=== PATIENT | female | born 1985 | race Caucasian/White ===

== ENCOUNTER 2016-03-30 10:36 | Emergency (ER) | payer BC ==
[2016-03-30] MEDS ORDERED: Ketorolac INJ* 30 MG/ML 1 ML VIAL IV PUSH ONE (11:19)
[2016-03-30] MEDS ORDERED: NS 0.9% 1000 ML* 1,000 ML BOLUS SCH (11:30)
--- NOTE | 2016-03-30 11:33 | ED ---
Throat Pain/Nasal Congestion - History of Current Complaint Chief Complaint: EDThroatPain Hx Obtained From: Patient Onset/Duration: Gradual Onset - partner was rececntly treated for Strep throat ( resolved). Pt has had ST for 2 weekshas had 2 neg strep tests at PCP office, no treatment other than cough drops and OTC NSAIDS. over past 2-3 days she has had in creasing sinus pain/pressure and ear pain. ST has become so bad she cannot eat or drink. now feeling dehyfrated and tired. Associated Signs And Symptoms: Positive: Sinus Discomfort. Negative: Drooling, Wheezing, Hoarseness, Nasal Discharge Cough: Nonproductive - Allergies/Home Medications Allergies/Adverse Reactions: Allergies Allergy/AdvReac Type Severity Reaction Status Date / Time No Known Allergies Allergy Verified 03/30/16 10:51 PMH/Surg Hx/FS Hx/Imm Hx Previously Healthy: Yes Endocrine/Hematology History: Denies: Hx Diabetes, Hx Thyroid Disease Cardiovascular History: Denies: Other Cardiovascular Problems/Disorders Respiratory History: Denies: Other Respiratory Problems/Disorders EENT History: Denies: Hx Tonsillitis Neurological History: Denies: Hx Migraine Psychiatric History: Denies: Other Psychiatric Issues/Disorders Infectious Disease History: No Infectious Disease History: Denies: Traveled Outside the [place] in Last 30 Days - Family History Known Family History: Positive: None - Social History Occupation: Employed Full-time Lives: With Family Alcohol Use: None Substance Use Type: Reports: None Smoking Status (MU): Never Smoked Tobacco Review of Systems Positive: Fever, Fatigue. Negative: Chills Eyes: Negative Negative: Photophobia, Drainage Positive: Sore Throat, Ear Ache Cardiovascular: Negative Positive: Cough. Negative: Shortness Of Breath Gastrointestinal: Negative Skin: Negative Negative: Rash Neurological: Negative Psychological: Other - tearful when describing pain All Other Systems Reviewed And Are Negative: Yes Physical Exam Triage Information Reviewed: Yes Vital Signs On Initial Exam: Initial Vitals Temp Pulse Resp BP Pulse Ox 98.2 F 114 15 134/80 99 03/30/16 10:40 03/30/16 10:40 03/30/16 10:40 03/30/16 10:40 03/30/16 10:40 Vital Signs Reviewed: Yes Appearance: Positive: No Pain Distress, Obese Skin: Positive: Warm, Skin Color Reflects Adequate Perfusion, Dry Eyes: Positive: Normal ENT: Positive: Pharyngeal erythema, Nasal congestion, TM dull - R ear bulging but not red, Other - cobblestoning OP Neck: Positive: Supple, Nontender, No Lymphadenopathy Respiratory/Lung Sounds: Positive: Clear to Auscultation Cardiovascular: Positive: Normal, RRR, Pulses are Symmetrical in both Upper and Lower Extremities Abdomen Description: Positive: Nontender, No Organomegaly, Soft Neurological: Positive: Normal, Sensory/Motor Intact, Alert, Oriented to Person Place, Time Psychiatric: Positive: Normal Diagnostics - Vital Signs Vital Signs Temp Pulse Resp BP Pulse Ox 03/30/16 10:40 98.2 F 114 15 134/80 99 - Laboratory Result Diagrams: 03/30/16 11:30 03/30/16 11:30 Lab Statement: Any lab studies that have been ordered have been reviewed, and results considered in the medical decision making process. Re-Evaluation - Re-Evaluation First Eval Change: Improved - pt states throat pain has decreased and she is feeling some better. has not tried to swallow fluids or food yet, but is willing to try now. Second Eval Re-Evaluation Time: 14:00 - able to swallow without intense pain. states feels better, no new c/o Change: Improved EENT Course/Dx - Differential Diagnoses Differential Diagnoses: Otitis Media, Pharyngitis, Sinusitis, URI/Bronchitis, Other - mono - Diagnoses Provider Diagnoses: Sinusitis, acute, Pharyngitis Discharge - Discharge Plan Condition: Improved Disposition: HOME Patient Education Materials: Sinusitis (ED) Forms: *Work Release Referrals: Kathryn Blanco, KETTLE FIRER [Primary Care Provider] - 2 Days (if no better) Additional Instructions: use augmentin as prescribed drink plenty of fluids use ibuprofen 600-800mg every 6 hours as needed for pain/ may also use Tylenol as directed
[2016-03-30 11:39] LABS: EBV Response YES
[2016-03-30 11:44] LABS: Hematocrit 38 % (35-47); Hemoglobin 12.6 g/dl (12.0-16.0); Mean Corpuscular HGB Conc 33 g/dl (31-36); Mean Corpuscular Hemoglobin 27 pg (27-31); Mean Corpuscular Volume 80 fL (80-97); Mean Platelet Volume 8 um3 (7.4-10.4); Red Blood Count 4.74 10^6/ul (4.0-5.4); Red Cell Distribution Width 14 % (10.5-15); White Blood Count 8.5 10^3/ul (3.5-10.8)
[2016-03-30 11:57] LABS: Albumin 3.7 g/dL (3.2-5.2); BUN/Creatinine Ratio 9.9 (8-20); Calcium 8.7 mg/dL (8.6-10.3); EGFR African American 122.7 (>60); EGFR Non-African American 95.4 (>60); Potassium 3.5 mmol/L (3.5-5.0); Total Bilirubin 0.4 mg/dL (0.2-1.0); Total Protein 6.7 g/dL (6.4-8.9)
[2016-03-30 12:34] LABS: Mono Internal Control QC Line Present
[2016-03-30 14:27] VITALS: BP 116/78
[2016-04-01 14:16] LABS: EBV Capsid Ag IgG Ab Positive (Negative); EBV Capsid Ag IgM Ab Negative (Negative)
== END 2016-03-30 14:26 | disposition home or self-care (01) ==
LOC: ED 10:36
DX: J01.90 Acute sinusitis, unspecified (principal); J02.9 Acute pharyngitis, unspecified
CPT/HCPCS: 36415; 80053; 85025; 86308; 86664; 86665; 96361; 96374; J1885

== ENCOUNTER 2017-07-03 09:35 | Emergency (ER) | payer BC ==
--- OUTSIDE RECORDS SUMMARY | 2017-07-03 10:25 | XMS REPORT ---
:1985 External Reference #:[id number] Author Organization [facility] Address [address] [address] Phone [phone] Care Team Providers Name Role Phone Kathie Rowland N.P. Primary Care Physician Unavailable Payers Type Date Identification Numbers Payment Provider Subscriber Health Maintenance Policy Number: [facility] Manisha Gupta [facility] [id number] PayID: [id number] [address] [address] AddyYUE garcia [address] Medigap Part B Expires: 03/22/2017 Policy Number: [employer] Manisha Gupta [id number] PayID: [id number] [address] [address] [place] [address] Problems Date Description Provider Status Onset: 06/08/2017 Peroneal tendinitis Krishna Barrera MD Active Onset: 06/08/2017 Sprain of ankle Krishna Barrera MD Active Social History Description No Information Available Allergies, Adverse Reactions, Alerts Date Description Reaction Status Severity Comments 06/08/2017 Latex active 06/08/2017 Tape active Medications Medication Date Status Form Strength Qnty SIG Indications Ordering Provider Gabapentin Active Capsules 100mg 60caps take 1 to Lissette 016 2 capsules MD Elio by mouth one time daily in the evening - maximum daily dose of 2 per day Ferrous Active Tablets 325(65Fe) 60tabs 1 tab by Lissette Sulfate 015 mg mouth MD Elio twice a day Prozac Active Unknown 000 Naproxen Active Unknown 000 Vital Signs Date Vital Result Comment 06/08/2017 Height 62 inches 5'2" Weight 240.00 lb BP Systolic 142 mmHg BP Diastolic 78 mmHg Respiratory Rate 16 /min Body Temperature 97.4 F Pain Level 4 BMI (Body Mass Index) 43.9 kg/m2 Results Test Date Test Result H/L Range Note Laboratory test finding 01/25/2015 Ferritin < 10.0 ng/mL Low 11-307 Iron & Iron Binding Capacity 01/25/2015 Iron 22 g/dL Low 50-212 Unsaturated Iron Binding 479 g/dL Total Iron Binding Capacity 501 g/dL High 250-450 % Iron Saturation 4 % Low 15-55 CBC Auto Diff 01/25/2015 White Blood Count 7.4 10^3/uL 4.8-10.8 Red Blood Count 4.38 10^6/uL 4.0-5.4 Hemoglobin 10.8 g/dL Low 12.0-16.0 Hematocrit 34 % Low 35-47 Mean Corpuscular Volume 77 fL Low 80-97 Mean Corpuscular Hemoglobin 25 pg Low 27-31 Mean Corpuscular HGB Conc 32 g/dL 31-36 Red Cell Distribution Width 14 % 10.5-15 Platelet Count 371 10^3/uL 150-450 Mean Platelet Volume 8 um3 7.4-10.4 Abs Neutrophils 4.8 10^3/uL 1.5-7.7 Abs Lymphocytes 2.0 10^3/uL 1.0-4.8 Abs Monocytes 0.5 10^3/uL 0-0.8 Abs Eosinophils 0.1 10^3/uL 0-0.6 Abs Basophils 0 10^3/uL 0-0.2 Abs Nucleated RBC 0.01 10^3/uL Granulocyte % 64.9 % 38-83 Lymphocyte % 27.5 % 25-47 Monocyte % 6.3 % 1-9 Eosinophil % 0.9 % 0-6 Basophil % 0.4 % 0-2 Nucleated Red Blood Cells % 0.1 Procedures Date CPT Code Description Status 03/20/2014 82517 Polysomnography Sleep Staging 4+ Parameters Completed Encounters Type Date Location Provider CPT E/M Dx Office Visit 06/08/2017 [place] [address] [id number] 8:00a [facility] M76.71 Plan of Care Future Appointment(s):07/20/2017 8:00 am - Krish[facility] MD [facility]06/08/2017 - Krishna Barrera, [id number] Sprain of other ligament of right ankle, initial encounterNew Therapy:Physical TherapyFollow up: Follow Up: 6 jkwbrL17.71 Peroneal tendinitis, right leg
[2017-07-03] MEDS ORDERED: Ketorolac INJ* 30 MG/ML 1 ML VIAL IV PUSH ONE (13:50)
[2017-07-03] MEDS ORDERED: Ondansetron INJ* 2 MG/ML VIAL IV ONE (13:52)
[2017-07-03] MEDS ORDERED: NS 0.9% 1000 ML* 1,000 ML IV ONE (14:58)
--- NOTE | 2017-07-03 15:28 | RAD ---
Indication: Blurry vision. CT of the brain was performed without IV contrast. Ventricular structures are midline. No midline shift is noted. The extra-axial spaces are unremarkable. I see no evidence of intracranial mass or hemorrhage. No other high or low density lesions are identified. Mastoid air cells and paranasal sinuses are otherwise unremarkable. IMPRESSION: No intracranial mass or hemorrhage is noted.
--- NOTE | 2017-07-03 17:34 | ED ---
Terra Angelo Thomas, scribed for Vin Gardiner MD on 07/03/17 at 1202 . Headache - HPI Summary HPI Summary: The patient is a 32 year old female with a history of migraines complaining of a headache that began this morning. She headache is frontal. She describes the pain as pressure. The pain is rated 8/10. She treated the pain with Naproxen 500 mg and acetaminophen 1000 mg this morning at around 08:00, which did not relieve pain. She did have some nausea earlier today. She denies cold symptoms. She denies focal weakness and speech problems. Pt also c/o blurry vision at the height of her PONCE sx, denies n/v - History Of Current Complaint Chief Complaint: EDHeadache Stated Complaint: MIGRAINE Time Seen by Provider: 07/03/17 11:47 Hx Obtained From: Patient Hx Last Menstrual Period: IUD Onset/Duration: Started hours ago - onset today at 06:00, Still Present Currently Pain Is: Current Pain Scale(0-10)= - 8 Timing: Constant Character: Pressure Location of Headache: Frontal Allevating Factors: Nothing - naproxen and acetamionphen did not releive pain Associated Signs And Symptoms: Negative - fever, cold symptoms, focal weakness, speech problems, Nausea - Allergies/Home Medications Allergies/Adverse Reactions: Allergies Allergy/AdvReac Type Severity Reaction Status Date / Time latex Allergy Rash And Verified 07/03/17 09:51 Itching Home Medications: Home Medications Fluoxetine HCl [Fluoxetine HCl] 40 mg PO BEDTIME 07/03/17 [History Confirmed ] Gabapentin CAP(*) [Neurontin 100 mg CAP(*)] 100 mg PO BEDTIME 07/03/17 [History Confirmed 07/03/17] PMH/Surg Hx/FS Hx/Imm Hx Endocrine/Hematology History: Denies: Hx Diabetes, Hx Thyroid Disease Cardiovascular History: Denies: Other Cardiovascular Problems/Disorders Respiratory History: Denies: Other Respiratory Problems/Disorders Neurological History: Reports: Hx Migraine Psychiatric History: Denies: Other Psychiatric Issues/Disorders Infectious Disease History: No Infectious Disease History: Denies: Traveled Outside the US in Last 30 Days - Family History Known Family History: Positive: Other - Per EMR, patient does not have relevant FHx - Social History Alcohol Use: None Substance Use Type: Reports: None Smoking Status (MU): Never Smoked Tobacco Review of Systems Negative: Fever Respiratory: Negative - cold symptoms Positive: Nausea Neurological: Negative - speech problems Positive: Headache. Negative: Weakness - focal All Other Systems Reviewed And Are Negative: Yes Physical Exam - Summary Physical Exam Summary: Appearance: Well-appearing, Well-nourished Skin: Warm Eyes: PERRL ENT: Normal Neck: Supple, nontender Respiratory: Clear to auscultation Cardiovascular: Regular rate, regular rhythm. Abdomen: Soft, nontender Musculoskeletal: Normal, Strength/ROM Intact Neurological: Normal, A&Ox3 Psychiatric: Normal General: No acute distress Triage Information Reviewed: Yes Vital Signs On Initial Exam: Initial Vitals Temp Pulse Resp BP Pulse Ox 97.4 F 102 12 146/95 95 07/03/17 09:53 07/03/17 09:53 07/03/17 09:53 07/03/17 09:53 07/03/17 09:53 Vital Signs Reviewed: Yes Diagnostics - Vital Signs Vital Signs Temp Pulse Resp BP Pulse Ox 07/03/17 11:32 98.1 F 73 14 136/74 07/03/17 09:53 97.4 F 102 12 146/95 95 - Laboratory Lab Statement: Any lab studies that have been ordered have been reviewed, and results considered in the medical decision making process. - Radiology CT Brain Xray Interpretation: No Acute Changes - IMPRESSION: No intracranial mass or hemorrhage is noted. Dr. Gardiner has reviewed this report. Radiology Interpretation Completed By: Radiologist Headache Course/Dx - Course Course Of Treatment: PONCE improved with IV toradol and Zofran, CT head negative - Diagnoses Provider Diagnoses: Migraine headache Discharge - Sign-Out/Discharge Documenting (check all that apply): Discharge - Discharge Plan Condition: Stable Disposition: HOME Patient Education Materials: Migraine Headache (ED) Referrals: Halle Rowland NP [Primary Care Provider] - - Billing Disposition and Condition Condition: STABLE Disposition: HOME The documentation as recorded by the Terra phillips Thomas accurately reflects the service I personally performed and the decisions made by , Vin Gardiner MD.
[2017-07-03 18:22] VITALS: BP 138/66
== END 2017-07-03 18:21 | disposition home or self-care (01) ==
LOC: ED 09:35
DX: G43.909 Migraine, unspecified, not intractable, without status migrainosus (principal)
CPT/HCPCS: 70450; 96360; 96374; 96375; 99283; J1885; J2405

== ENCOUNTER 2018-01-23 20:04 | Emergency (ER) | payer BC ==
--- OUTSIDE RECORDS SUMMARY | 2018-01-23 20:24 | XMS REPORT ---
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 Active Onset: 12/08/2017 Arthralgia of the pelvic region and Earle Henriquez M.D. Active thigh Onset: 12/08/2017 Restless legs Earle Henriquez M.D. Active Onset: 12/08/2017 Insomnia Earle Henriquez M.D. Active Onset: 12/08/2017 Migraine without aura, not refractory Earle Henriquez M.D. Active Onset: 12/08/2017 Irritable bowel syndrome with Earle Henriquez M.D. Active diarrhea Onset: 12/08/2017 Anemia Earle Henriquez M.D. Active Onset: 12/08/2017 Anxiety state Earle Henriquez M.D. Active Onset: 12/08/2017 Mild recurrent major depression Earle Henriquez M.D. Active Onset: 06/08/2017 Peroneal tendinitis Krishna Barrera MD Active Onset: 06/08/2017 Sprain of ankle Krishna Barrera MD Active Family History Date Family Member(s) Problem(s) Comments General Breast Cancer General Diabetes Mother Breast Cancer Mother Hypertension Social History Type Date Description Comments Lives With Children Occupation [employer] ETOH Use Denies alcohol use ETOH Use Rarely consumes alcohol Smoking Patient has never smoked Recreational Drug Use Denies Drug Use Allergies, Adverse Reactions, Alerts Date Description Reaction Status Severity Comments 06/08/2017 Latex active 06/08/2017 Tape active 12/08/2017 Dairy Ease active 12/08/2017 Gluten active Medications Medication Date Status Form Strength Qnty SIG Indications Ordering Provider Prozac Active Capsules 40mg 30caps 1 By Mouth Earle 018 In The [place], Evening MSaúlDSaúl Beyaz Active Tablets 3-0.02-0.45 Earle 018 1mg Deepak Henriquez Gabapentin Active Capsules 100mg 60caps 2 capsules Lissette 016 by mouth MD Elio one time daily in the evening - maximum daily dose of 2 per day Ibuprofen 0 Active Tablets 800mg 1 tablet Unknown 000 q8 hours as needed for pain Ferrous Hx Tablets 325(65Fe) 60tabs ( Not Lissette Sulfate 015 - mg Taking) 1 MD Elio tab by 018 mouth twice a day Prozac 0 Hx Capsule 30caps 1 By Mouth Earle 000 - In The [place], Evening M.D. 018 Naproxen Hx Unknown 000 - 018 Vital Signs Date Vital Result Comment 12/31/2017 Height 61 inches 5'1" Heart Rate 76 /min BP Systolic 128 mmHg BP Diastolic 80 mmHg Body Temperature 98.4 F Pain Level 7 12/08/2017 Height 62 inches 5'2" Weight 216.00 lb Heart Rate 76 /min BP Systolic 120 mmHg BP Diastolic 76 mmHg Body Temperature 99.2 F O2 % BldC Oximetry 98 % BMI (Body Mass Index) 39.5 kg/m2 06/08/2017 Height 62 inches 5'2" Weight 240.00 lb BP Systolic 142 mmHg BP Diastolic 78 mmHg Respiratory Rate 16 /min Body Temperature 97.4 F Pain Level 4 BMI (Body Mass Index) 43.9 kg/m2 Results Test Date Test Result H/L Range Note CBC Auto Diff 12/18/2017 White Blood Count 6.7 10^3/uL 3.5-10.8 Red Blood Count 4.72 10^6/uL 4.00-5.40 Hemoglobin 12.8 g/dL 12.0-16.0 Hematocrit 38 % 35-47 Mean Corpuscular Volume 81 fL 80-97 Mean Corpuscular Hemoglobin 27 pg 27-31 Mean Corpuscular HGB Conc 33 g/dL 31-36 Red Cell Distribution Width 14 % 10.5-15 Platelet Count 366 10^3/uL 150-450 Mean Platelet Volume 8.0 um3 7.4-10.4 Abs Neutrophils 4.5 10^3/uL 1.5-7.7 Abs Lymphocytes 1.7 10^3/uL 1.0-4.8 Abs Monocytes 0.4 10^3/uL 0-0.8 Abs Eosinophils 0.1 10^3/uL 0-0.6 Abs Basophils 0 10^3/uL 0-0.2 Abs Nucleated RBC 0 10^3/uL Granulocyte % 67.1 % 38-83 Lymphocyte % 25.9 % 25-47 Monocyte % 5.8 % 0-7 Eosinophil % 0.9 % 0-6 Basophil % 0.3 % 0-2 Nucleated Red Blood Cells % 0.2 Basic Metabolic Panel 12/18/2017 Sodium 138 mmol/L 135-145 Potassium 4.5 mmol/L 3.5-5.0 Chloride 105 mmol/L 101-111 Co2 Carbon Dioxide 25 mmol/L 22-32 Anion Gap 8 mmol/L 2-11 Glucose 96 mg/dL 70-100 Blood Urea Nitrogen 9 mg/dL 6-24 Creatinine 0.72 mg/dL 0.51-0.95 BUN/Creatinine Ratio 12.5 8-20 Calcium 9.0 mg/dL 8.6-10.3 Egfr Non- 93.3 >60 Egfr 112.9 >60 1 Lipid Profile (Trig/Chol/HDL) 12/18/2017 Triglycerides 148 mg/dL 2 Cholesterol 195 mg/dL 3 HDL Cholesterol 75.4 mg/dL 4 LDL Cholesterol 90 mg/dL 5 Laboratory test finding 01/25/2015 Ferritin < 10.0 [...] 0-2 Nucleated Red Blood Cells % 0.1 1 Because ethnic data is not always readily available, this report includes an eGFR for both -Americans and non- Americans. The National Kidney Disease Education Program (NKDEP) does not endorse the use of the MDRD equation for patients that are not between the ages of 18 and 70, are , have extremes of body size, muscle mass, or nutritional status, or are non- or non-. According to the National Kidney Foundation, irrespective of diagnosis, the stage of the disease is based on the level of kidney function: Stage Description GFR(mL/min/1.73 m(2)) 1 Kidney damage with normal or decreased GFR 90 2 Kidney damage with mild decrease in GFR 60-89 3 Moderate decrease in GFR 30-59 4 Severe decrease in GFR 15-29 5 Kidney failure <15 (or dialysis) 2 Desirable: <150 Borderline High: 150-199 High: 200-499 Very High: >500 3 Desirable: <200 Borderline High: 200-239 High: >239 4 Low: <40 Desirable: 40-60 High: >60 5 Desirable: <100 Near Optimal: 100-129 Borderline High: 130-159 High: 160-189 Very High: >189 Procedures Date CPT Code Description Status 03/20/2014 38625 Polysomnography Sleep Staging 4+ Parameters Completed Encounters Type Date Location Provider CPT E/M Dx Office Visit 12/08/2017 4:20p [facility] Earle Henriquez, [address] F33.0 - [address] F41.9 D64.9 K58.0 G43.009 G47.00 G25.81 Z13.220 Z13.1 M25.551 E66.9 Office Visit 06/08/2017 8:00a [place] [address] S93.491A Of [facility] M76.71 Plan of Care Future Appointment(s):06/07/2018 4:00 pm - Earle Henriquez M.D. at [facility] - [address]/31/2017 - Daina Lopez, MDM25.551 Pain in right hipM24.851 Oth specific joint derangements of right hip, NECNew Xrays:MRI Hip Right ArthrogramNew Therapy:Physical TherapyFollow up:Follow up: after MR arthrogram
[2018-01-23 20:33] VITALS: BP 148/101
--- NOTE | 2018-01-23 21:20 | UC ---
Throat Pain/Nasal Christophe HPI - HPI Summary HPI Summary: uri for 7 days today sore throat with right ear pain no fevers no illness exposures - History of Current Complaint Chief Complaint: UCEar Stated Complaint: SORE THROAT,EAR PAIN Time Seen by Provider: 01/23/18 21:11 Hx Obtained From: Patient Hx Last Menstrual Period: control ?: No Onset/Duration: Gradual Onset, Lasting Days - 7, Worse Since - today Pain Intensity: 7 Pain Scale Used: 0-10 Numeric Cough: None Associated Signs & Symptoms: Positive: Nasal Discharge - Allergies/Home Medications Allergies/Adverse Reactions: Allergies Allergy/AdvReac Type Severity Reaction Status Date / Time latex Allergy Rash And Verified 01/06/18 11:15 Itching PMH/Surg Hx/FS Hx/Imm Hx Previously Healthy: No Psychological History: Depression - Surgical History Surgical History: None Surgery Procedure, Year, and Place: DENIES - Family History Known Family History: Positive: None, Other - Per EMR, patient does not have relevant FHx - Social History Occupation: Employed Full-time Lives: With Family Alcohol Use: None Substance Use Type: None Smoking Status (MU): Never Smoked Tobacco Review of Systems Constitutional: Negative Skin: Negative Eyes: Negative ENT: Sore Throat, Ear Ache, Nasal Discharge, Sinus Congestion Respiratory: Negative Cardiovascular: Negative Gastrointestinal: Negative Genitourinary: Negative Motor: Negative Neurovascular: Negative Musculoskeletal: Negative Neurological: Negative Psychological: Negative Is Patient Immunocompromised?: No All Other Systems Reviewed And Are Negative: Yes Physical Exam Triage Information Reviewed: Yes Appearance: Well-Appearing, No Pain Distress, Well-Nourished Vital Signs: Initial Vital Signs Temp 98.5 F 01/23/18 20:28 Pulse 82 01/23/18 20:28 Resp 16 01/23/18 20:28 BP 148/101 01/23/18 20:28 Pulse Ox 100 01/23/18 20:28 Vital Signs Reviewed: Yes Eye Exam: Normal Eyes: Positive: Conjunctiva Clear ENT Exam: Normal ENT: Positive: Normal ENT inspection, Hearing grossly normal, Pharynx normal, Nasal congestion, Nasal drainage, TMs normal, Uvula midline, Other - right eustation area discomfort. Negative: Tonsillar swelling, Tonsillar exudate, Trismus, Muffled voice, Hoarse voice, Dental tenderness, Sinus tenderness Dental Exam: Normal Neck exam: Normal Neck: Positive: Supple, Nontender, No Lymphadenopathy Respiratory Exam: Normal Respiratory: Positive: Chest non-tender, Lungs clear, Normal breath sounds, No respiratory distress, No accessory muscle use Cardiovascular Exam: Normal Cardiovascular: Positive: RRR, No Murmur, Pulses Normal, Brisk Capillary Refill Musculoskeletal Exam: Normal Musculoskeletal: Positive: Strength Intact, ROM Intact, No Edema Neurological Exam: Normal Neurological: Positive: Alert, Muscle Tone Normal Psychological Exam: Normal Skin Exam: Normal Diagnostics - Laboratory Diagnostic Studies Completed/Ordered: rst (-) Throat Pain/Nasal Course/Dx - Course Assessment/Plan: increase fluids, flonase, sudafed, tylenol, ibuprofen follow blood pressure with pcp - Differential Dx/Diagnosis Provider Diagnoses: right eustation tube dysfunction Discharge - Sign-Out/Discharge Documenting (check all that apply): Patient Departure All imaging exams completed and their final reports reviewed: No Studies - Discharge Plan Condition: Stable Disposition: HOME Prescriptions: Fluticasone NASAL SPRAY 50MCG* [Flonase NASAL SPRAY 50MCG*] 2 spray BOTH NARES DAILY #1 btl Patient Education Materials: Earache (ED), Hypertension (ED) Referrals: Earle Henriquez MD [Primary Care Provider] - 2 Weeks - Billing Disposition and Condition Condition: STABLE Disposition: Home
== END 2018-01-23 21:37 | disposition home or self-care (01) ==
LOC: UCEAST 20:04
DX: H69.91 Unspecified Eustachian tube disorder, right ear (principal); Z91.040 Latex allergy status
CPT/HCPCS: 87651; 99212; G0463

== ENCOUNTER 2018-06-21 08:15 | Emergency (ER) | payer BC, OTHER ==
[2018-06-21] MEDS ORDERED: Ketorolac INJ* 30 MG/ML 1 ML VIAL IV ONE (08:34)
[2018-06-21] MEDS ORDERED: Ondansetron INJ* 2 MG/ML VIAL IV ONE (08:34)
[2018-06-21] MEDS ORDERED: NS 0.9% 1000 ML** 1,000 ML IV ONE (08:34)
[2018-06-21] MEDS ORDERED: diPHENhydraMINE IV* 50 MG/ML 1 ml VIAL (BENADRYL) IV ONE (08:34)
--- OUTSIDE RECORDS SUMMARY | 2018-06-21 08:43 | XMS REPORT | Continuity of Care Document ---
:1985 External Reference #:[id number] Author Name ChrisRuth Care Team Providers Name Role Phone Earle Henriquez MD Care Team Information Medical Records Assistant Unavailable Earle Henriquez MD Primary Care Physician Unavailable Payers Date Identification Numbers Payment Provider Subscriber Policy Number: [id number] [employer] Manisha Gupta PayID: [id number] [address] [address] [place] [address] Effective: 2016 Policy Number: [id number] [facility] Manisha Gupta Expires: 2018 Group Number: [id number] PayID: [id number] [address] Advance Directives Description No Information Available Problems Date Description Provider Status Onset: 12/08/2017 [...] MD Active Family History Date Family Member(s) Observation Comments General Breast Cancer General Diabetes Mother Breast Cancer Mother Hypertension Social History Type Date Description Comments Sex Unknown Lives With Children 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 ETOH Use Denies alcohol use ETOH Use Rarely consumes alcohol Tobacco Use Start: Unknown Patient has never smoked Recreational Drug Use Denies Drug Use Smoking Status Reviewed: 05/24/18 Patient has never smoked Allergies, Adverse Reactions, Alerts Date Description Reaction Status Severity Comments 06/08/2017 Latex Active 06/08/2017 Tape Active 12/08/2017 Dairy Ease Active 12/08/2017 Gluten Active Medications Medication Date Status Form Strength Qnty SIG Indications Ordering Provider Prozac 12/08/ Active Capsules 40mg 30caps 1 By Mouth Earle 2017 In The [place], Evening M.DSaúl Beyaz 12/08/ Active Tablets 3-0.02-0.4 Earle 2017 51mg Deepak Henriquez Gabapentin 06/11/ Active Capsules 100mg 60caps 2 capsules Earle 2015 by mouth [place], one time M.D. daily in the evening - maximum daily dose of 2 per day Ibuprofen / Active Tablets 800mg 1 tablet Unknown 0000 q8 hours as needed for pain Azithromycin 01/25/ Hx Tablets 250mg 6tabs 2 tab J06.9 Earle 2017 - today and [place], 05/23/ then 1tab M.D. 2019 daily Ferrous Sulfate 01/26/ Hx Tablets 325(65Fe) 60tabs ( Not Lissette 2015 - mg Taking) 1 MD Elio 12/30/ tab by 2017 mouth twice a day Prozac / Hx Capsule 30caps 1 By Mouth Earle 0000 - In The [place], 12/08/ Evening M.D. 2018 Naproxen / Hx Unknown 0000 - 2017 Immunizations Description No Information Available Vital Signs Date Vital Result Comment 05/24/2018 5:01pm Height 61 inches 5'1" Weight 255.50 lb Heart Rate 94 /min BP Systolic 125 mmHg BP Diastolic 79 mmHg Body Temperature 95.9 F O2 % BldC Oximetry 97 % BMI (Body Mass Index) 48.3 kg/m2 01/25/2018 12:00pm Height 61 inches 5'1" Weight 255.31 lb Heart Rate 95 /min BP Systolic 110 mmHg BP Diastolic 80 mmHg Body Temperature 98.6 F O2 % BldC Oximetry 97 % BMI (Body Mass Index) 48.2 kg/m2 12/31/2017 3:39pm Height 61 inches 5'1" Heart Rate 76 /min BP Systolic 128 mmHg BP Diastolic 80 mmHg Body Temperature 98.4 F Pain Level 7 12/08/2017 4:28pm Height 62 inches 5'2" Weight 216.00 lb Heart Rate 76 /min BP Systolic 120 mmHg BP Diastolic 76 mmHg Body Temperature 99.2 F O2 % BldC Oximetry 98 % BMI (Body Mass Index) 39.5 kg/m2 06/08/2017 8:26am Height 62 inches 5'2" Weight 240.00 lb BP Systolic 142 mmHg BP Diastolic 78 mmHg Respiratory Rate 16 /min Body Temperature 97.4 F Pain Level 4 BMI (Body Mass Index) 43.9 kg/m2 Results Test Date Facility Test Result H/L Range Note Laboratory test 01/23/2018 [facility] Rapid Strep Negative Negative [address] [place] [address] [phone] CBC Auto Diff 12/18/2017 [facility] White Blood 6.7 10^3/uL N 3.5-10.[address] [place] [address] [phone] Red Blood Count 4.72 10^6/uL N 4.00-5.40 Hemoglobin 12.8 g/dL N 12.0-16.0 Hematocrit 38 % N 35-47 Mean Corpuscular Volume 81 fL N 80-97 Mean Corpuscular Hemoglobin 27 pg N 27-31 Mean Corpuscular HGB Conc 33 g/dL N 31-36 Red Cell Distribution Width 14 % N 10.5-15 Platelet Count 366 10^3/uL N 150-450 Mean Platelet Volume 8.0 um3 N 7.4-10.4 Abs Neutrophils 4.5 10^3/uL N 1.5-7.7 Abs Lymphocytes 1.7 10^3/uL N 1.0-4.8 Abs Monocytes 0.4 10^3/uL N 0-0.8 Abs Eosinophils 0.1 10^3/uL N 0-0.6 Abs Basophils 0 10^3/uL N 0-0.2 Abs Nucleated RBC 0 10^3/uL Granulocyte % 67.1 % N 38-83 Lymphocyte % 25.9 % N 25-47 Monocyte % 5.8 % N 0-7 Eosinophil % 0.9 % N 0-6 Basophil % 0.3 % N 0-2 Nucleated Red Blood Cells % 0.2 Basic Metabolic Panel 12/18/2017 [facility] Sodium 138 mmol/L N 135-145 [address] [place] [address] [phone] Potassium 4.5 mmol/L N 3.5-5.0 Chloride 105 mmol/L N 101-111 Co2 Carbon Dioxide 25 mmol/L N 22-32 Anion Gap 8 mmol/L N 2-11 Glucose 96 mg/dL N 70-100 Blood Urea Nitrogen 9 mg/dL N 6-24 Creatinine 0.72 mg/dL N 0.51-0.95 BUN/Creatinine Ratio 12.5 N 8-20 Calcium 9.0 mg/dL N 8.6-10.3 Egfr Non- 93.3 >60 Egfr 112.9 >60 2 Lipid Profile 12/18/2017 [facility] Triglycerides 148 mg/dL 3 (Trig/Chol/HDL) [address] [place] [address] [phone] Cholesterol 195 mg/dL 4 HDL Cholesterol 75.4 mg/dL 5 LDL Cholesterol 90 mg/dL 6 Laboratory test 01/25/2015 [facility] Ferritin < 10.0 ng/mL Low 11-307 finding [address] [place] [address] [phone] Iron & Iron 01/25/2015 [facility] Iron 22 g/dL Low 50-212 Binding Capacity [address] [place] [address] [phone] Unsaturated Iron Binding 479 g/dL N Total Iron Binding Capacity 501 g/dL High 250-450 % Iron Saturation 4 % Low 15-55 CBC Auto Diff 01/25/2015 [facility] White Blood 7.4 10^3/uL N 4.8-10.8 [address] [facility] [place] [address] [phone] Red Blood Count 4.38 10^6/uL N 4.0-5.4 Hemoglobin 10.8 g/dL Low 12.0-16.0 Hematocrit 34 % Low 35-47 Mean Corpuscular Volume 77 fL Low 80-97 Mean Corpuscular Hemoglobin 25 pg Low 27-31 Mean Corpuscular HGB Conc 32 g/dL N 31-36 Red Cell Distribution Width 14 % N 10.5-15 Platelet Count 371 10^3/uL N 150-450 Mean Platelet Volume 8 um3 N 7.4-10.4 Abs Neutrophils 4.8 10^3/uL N 1.5-7.7 Abs Lymphocytes 2.0 10^3/uL N 1.0-4.8 Abs Monocytes 0.5 10^3/uL N 0-0.8 Abs Eosinophils 0.1 10^3/uL N 0-0.6 Abs Basophils 0 10^3/uL N 0-0.2 Abs Nucleated RBC 0.01 10^3/uL N Granulocyte % 64.9 % N 38-83 Lymphocyte % 27.5 % N 25-47 Monocyte % 6.3 % N 1-9 Eosinophil % 0.9 % N 0-6 Basophil % 0.4 % N 0-2 Nucleated Red Blood Cells % 0.1 N 1 Rock Cutter: [id number] 2 Because ethnic data is not always readily [...] 15-29 5 Kidney failure <15 (or dialysis) 3 Desirable: <150 Borderline High: 150-199 High: 200-499 Very High: >500 4 Desirable: <200 Borderline High: 200-239 High: >239 5 Low: <40 Desirable: 40-60 High: >60 6 Desirable: <100 Near Optimal: 100-129 Borderline High: 130-159 High: 160-189 Very High: >189 Procedures Date Code Description Status 03/20/2014 25017 Polysomnography Sleep Staging 4+ Parameters Completed Encounters Type Date Location Provider Dx Diagnosis Office Visit 01/25/2018 [facility] Internal Earle J06.9 Acute upper 11:40a Medicine - Tbninfa Henriquez M.D. 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 right ankle, initial encounter M76.71 Peroneal tendinitis, right leg Plan of Treatment Future Appointment(s):06/07/2018 4:00 pm - Earle Henriquez M.D. at [facility] Internal Medicine - [address]05/24/2018 - Vanessa Mack, MDR19.7 Diarrhea, unspecified
[2018-06-21 08:47] LABS: ABS Basophils 0 10^3/ul (0-0.2); ABS Eosinophils 0.1 10^3/ul (0-0.6); ABS Monocytes 0.5 10^3/ul (0-0.8); ABS Neutrophils 3.8 10^3/ul (1.5-7.7); ABS Nucleated RBC 0 10^3/ul; Eosinophil % 1.8 %; Hematocrit 36 % (33-41); Lymphocyte % 30.5 %; Mean Corpuscular HGB Conc 34 g/dL (31-36); Mean Corpuscular Hemoglobin 27 pg (27-31); Mean Corpuscular Volume 80 fL (80-97); Mean Platelet Volume 7.5 fL (7.4-10.4); Nucleated Red Blood Cells % 0; Platelet Count 316 10^3/uL (150-450); Red Blood Count 4.45 10^6 /uL (3.70-4.87); Red Cell Distribution Width 14 % (10.5-15); White Blood Count 6.4 10^3/uL (3.5-10.8)
--- NOTE | 2018-06-21 10:40 | ED ---
Headache - HPI Summary HPI Summary: Patient is a 33-year-old female presenting to the ED with ocular migraine since Thursday, 3 days ago. She states she's had this before. She has never seen a neurologist. She endorses pain is a 3/10, intermittent and throbbing, not worse or better with positioning or light. Denies any photophobia. Denies any fevers. Patient denies any neck stiffness, abdominal pain, chest pain, SOB. She has been taking ibuprofen at home without relief. - History Of Current Complaint Chief Complaint: EDHeadache Stated Complaint: "I HAVE A MIGRAINE." Time Seen by Provider: 06/21/18 08:20 Hx Obtained From: Patient Hx Last Menstrual Period: control Onset/Duration: Sudden Onset Initially Headache Was: Initial Pain Scale(0-10)= - 7 Currently Pain Is: Current Pain Scale(0-10)= - 7 Timing: Intermittent, Lasting:, Hours Character: Throbbing Location of Headache: Diffuse Aggravating Factor: Nothing Allevating Factors: Nothing Associated Signs And Symptoms: Negative - Risk Factors SAH Risk Factors: Negative Meningitis Risk Factors: Negative SDH Risk Factors: Negative Temporal Arteritis Risk Factors: Negative - Allergies/Home Medications Allergies/Adverse Reactions: Allergies Allergy/AdvReac Type Severity Reaction Status Date / Time latex AdvReac Rash And Verified 06/21/18 08:19 Itching PMH/Surg Hx/FS Hx/Imm Hx Previously Healthy: Yes Endocrine/Hematology History: Denies: Hx Diabetes, Hx Thyroid Disease Cardiovascular History: Denies: Hx Hypertension, Hx Pacemaker/ICD, Other Cardiovascular Problems/ Disorders Respiratory History: Denies: Other Respiratory Problems/Disorders History: Denies: Hx Renal Disease Sensory History: Denies: Hx Hearing Aid Neurological History: Reports: Hx Migraine Psychiatric History: Denies: Hx Panic Disorder, Other Psychiatric Issues/Disorders - Surgical History Surgery Procedure, Year, and Place: DENIES - Immunization History Hx Pertussis Vaccination: No Immunizations Up to Date: Yes Infectious Disease History: No Infectious Disease History: Denies: Traveled Outside the [place] in Last 30 Days - Family History Known Family History: Positive: None, Other - Per EMR, patient does not have relevant FHx - Social History Occupation: Unemployed Lives: With Family Alcohol Use: None Hx Substance Use: No Substance Use Type: Reports: None Hx Tobacco Use: No Smoking Status (MU): Never Smoked Tobacco Review of Systems Constitutional: Negative Negative: Fever, Chills, Fatigue, Skin Diaphoresis Negative: Dental Pain Negative: Palpitations, Chest Pain Negative: Shortness Of Breath, Cough Negative: Arthralgia, Myalgia Skin: Negative Positive: Headache Psychological: Normal All Other Systems Reviewed And Are Negative: Yes Physical Exam Triage Information Reviewed: Yes Vital Signs On Initial Exam: Initial Vitals Temp Pulse Resp BP Pulse Ox 98.0 F 88 16 151/98 98 06/21/18 08:17 06/21/18 08:17 06/21/18 08:17 06/21/18 08:17 06/21/18 08:17 Vital Signs Reviewed: Yes Appearance: Positive: Well-Appearing, No Pain Distress Skin: Positive: Warm, Skin Color Reflects Adequate Perfusion Head/Face: Positive: Normal Head/Face Inspection Eyes: Positive: EOMI, Conjunctiva Clear Neck: Positive: Supple, No Lymphadenopathy Respiratory/Lung Sounds: Positive: Clear to Auscultation, Breath Sounds Present Cardiovascular: Positive: Pulses are Symmetrical in both Upper and Lower Extremities. Negative: Leg Edema Left, Leg Edema Right Musculoskeletal: Positive: Normal, Strength/ROM Intact Psychiatric: Positive: Affect/Mood Appropriate Diagnostics - Vital Signs Vital Signs Temp Pulse Resp BP Pulse Ox 06/21/18 08:17 98.0 F 88 16 151/98 98 - Laboratory Lab Results: Lab Results 06/21/18 06/21/18 Range/Units 08:40 08:40 WBC 6.4 (3.5-10.8) 10^3/uL RBC 4.45 (3.70-4.87) 10^6 /uL Hgb 12.0 (12.0-16.0) g/dL Hct 36 (33-41) % MCV 80 (80-97) fL MCH 27 (27-31) pg MCHC 34 (31-36) g/dL RDW 14 (10.5-15) % Plt Count 316 (150-450) 10^3/uL MPV 7.5 (7.4-10.4) fL Neut % (Auto) 59.8 % Lymph % (Auto) 30.5 % Mayes % (Auto) 7.4 % Eos % (Auto) 1.8 % Baso % (Auto) 0.5 % Absolute Neuts (auto) 3.8 (1.5-7.7) 10^3/ul Absolute Lymphs (auto) 2.0 (1.0-4.8) 10^3/ul Absolute Monos (auto) 0.5 (0-0.8) 10^3/ul Absolute Eos (auto) 0.1 (0-0.6) 10^3/ul Absolute Basos (auto) 0 (0-0.2) 10^3/ul Absolute Nucleated RBC 0 10^3/ul Nucleated RBC % 0 ESR Pending Lactic Acid 1.4 (0.5-2.0) mmol/L Result Diagrams: 06/21/18 08:40 Lab Statement: Any lab studies that have been ordered have been reviewed, and results considered in the medical decision making process. Headache Course/Dx - Course Course Of Treatment: During this patient's course of treatment, patient is evaluated for left sided ocular migraine which began approximately 3 days ago and has remained intermittent. Ibuprofen 800 mg 3 times daily at home without relief. She denies any photophobia. She denies this to be the worst headache of her life. She denies acute onset and states it was a gradual increase in discomfort. She describes the ocular headache as throbbing without eye tearing. She is given Toradol, Benadryl and Zofran. This completely resolves her symptoms and she states she is okay for discharge. I have given her follow- up to neurology. Labs unremarkable. - Diagnoses Differential Diagnosis/HQI/PQRI: Migraine, Other - ocular headache Provider Diagnoses: Migraine Discharge - Sign-Out/Discharge Documenting (check all that apply): Patient Departure Patient Received Moderate/Deep Sedation with Procedure: No - Discharge Plan Condition: Stable Disposition: HOME Patient Education Materials: Migraine Headache (ED) Forms: *Work Release Referrals: Stone Cameron MD [Medical Doctor] - Vanessa Mack MD [Primary Care Provider] - Additional Instructions: Take toradol 10mg four times daily as needed for headache Drink plenty of water - Billing Disposition and Condition Condition: STABLE Disposition: Home
[2018-06-21 10:44] VITALS: BP 132/85
[2018-06-21 14:43] LABS: Erythrocyte Sed Rate 20 mm/Hr (0-20)
== END 2018-06-21 10:43 | disposition home or self-care (01) ==
LOC: ED 08:15
DX: G43.109 Migraine with aura, not intractable, without status migrainosus (principal); Z91.040 Latex allergy status
CPT/HCPCS: 36415; 83605; 85025; 85652; 96361; 96374; 96375; 99282; J1200; J1885; J2405

== ENCOUNTER → 2018-12-03 | Day surgery (SDC) | payer OTHER ==
[~2018-12-03] MED LIST: Buffered Lidocaine 1% SYRIN* 1 ML/SYRINGE INTRADERM ONE; Dexamethasone TAB* 4 MG ONE; Dexamethasone TAB* 4 MG PO ONE; DiMENhydriNATE IV* 50 MG/ML VIAL IV PUSH PRN; Famotidine IV* 10 MG/ML 2 ML (20 mg) IV ONE; Famotidine IV* 10 MG/ML 2 ML (20 mg) ONE; HYDROmorphone INJ1* 1 MG/ML SYRINGE IV PRN; KETAMINE HCL* 50 MG/ML 10 ML VIAL ONE; Ketorolac INJ* 30 MG/ML 1 ML VIAL ONE; Lactated Ringers 1000 ML Bag* 1,000 ML IV SCH; Lidocaine 2% PF * 5 ML VIAL ONE; Midazolam* 1 MG/ML 5 ML VIAL (5 MG) ONE; Naloxone* 0.4 MG/ML 1 ML VIAL IV PRN; Ondansetron ODT TAB* 4 MG ONE; Ondansetron ODT TAB* 4 MG PO ONE; PROCHLORPERAZINE INJ 5 MG/ML 2 ML VIAL IV PRN; PROCHLORPERAZINE INJ 5 MG/ML 2 ML VIAL ONE; Propofol* 10 MG/ML 20 ML BTL ONE; Scopolamine 1.5 mg* PATCH TRANSDERM PRN; Scopolamine PATCH Remove* 1 NOTE MISC PATCH OFF ONE; fentaNYL* 50 MCG/ML 2 ML VIAL (100 MCG VIAL) IV PRN; fentaNYL* 50 MCG/ML 2 ML VIAL (100 MCG VIAL) ONE; oxyCODONE/Acetamin 5/325 MG* TAB PO PRN
[2018-12-03 11:17] VITALS: BP 134/83
--- NOTE | 2018-12-03 14:18 | OP ---
DATE OF OPERATION: 12/03/18 - [facility] DATE OF : 83 SURGEON: Raimundo Morrow MD ANESTHESIOLOGIST: Dr. Mason ANESTHESIA: General endotracheal anesthesia. PRE-OP DIAGNOSES: Irregular menses, menorrhagia, dysmenorrhea. POST-OP DIAGNOSES: Irregular menses, menorrhagia, dysmenorrhea. OPERATIVE PROCEDURE: Dilation, hysteroscopy, MyoSure polypectomy, curettage. ESTIMATED BLOOD LOSS: Minimal, less than 20 cc. SPECIMENS: Endometrial polyp and endometrial curettings. FLUIDS: Per Anesthesia. DRAINS: None. FLUID DEFICIT: On the MyoSure was 250 cc. FINDINGS: Midline anteverted uterus. The cervix is positioned posteriorly. The uterus sounds to 10. There were two small, thin polyps within the endometrium. Bilateral tubal ostia were visualized. The uterus appears narrow towards the fundus. The cervix is long. No adnexal masses were palpated. The exam is limited by habitus. COMPLICATIONS: None. COUNTS: Sponge count correct x2. CONDITION: The patient was brought to the recovery room awake and in stable condition. DESCRIPTION OF PROCEDURE: The patient was brought to the operating room. When general anesthesia was found to be adequate, the patient was prepped and draped in the usual sterile fashion in the dorsal lithotomy position. Exam under anesthesia was performed. The bivalved speculum was placed in the vagina. The anterior lip of the cervix was grasped with a single-tooth tenaculum and the cervix was gently and easily dilated with graduated Rodriguez dilators. The MyoSure was introduced. Two thin polyps were seen within the endometrium. These were removed in their entirety with the MyoSure Lite. Both tubal ostia were visualized. The remainder of the endometrium appeared normal. Curettage was performed. The single-tooth tenaculum was removed from the anterior lip of the cervix. Excellent hemostasis was noted. All instruments were removed from the vagina and the patient was brought to the recovery room awake and in stable condition. [id number]/[facility] #: [id number] MTDD
== END | disposition home or self-care (01) ==
LOC: OR 08:34
PROVIDERS: ATTEND Obstetrics & Gynecology
DX: N92.1 Excessive and frequent menstruation with irregular cycle (principal); N84.0 Polyp of corpus uteri; E66.9 Obesity, unspecified; F41.9 Anxiety disorder, unspecified
CPT/HCPCS: 81025; 88305; A9270-GY; J0780; J1885; J2250; J2704; J3010; J8540

== ENCOUNTER 2018-12-07 08:28 | Emergency (ER) | payer OTHER ==
[2018-12-07 08:51] VITALS: BP 131/92
--- NOTE | 2018-12-07 08:54 | ED ---
Abdominal Pain/Female - HPI Summary HPI Summary: Pt is a 33 y/o F presenting to the ED with a chief complaint of abd pain initially onset 12/03/18 after her D&C. Since that date, she has had lower abdominal pain described as gassy with associated nausea, lightheadedness, dizziness, and light vaginal bleeding. This morning at 0500 the abd pain was in her upper abd, much worse, and associated with SOB. The SOB has since resolved. She called Dr. Baeza office 6 times but no one answered, so she came here. She denies vomiting, diarrhea, constipation, CP, LE edema or LE pain. Medications reviewed. Allergies noted. NKDA. - History of Current Complaint Chief Complaint: EDAbdPain Stated Complaint: POST-PROCEDURE PROBLEMS PER PT Time Seen by Provider: 12/07/18 08:35 Hx Obtained From: Patient Hx Last Menstrual Period: control Onset/Duration: Gradual Onset, Lasting Days, Still Present Timing: Days Severity Initially: Moderate Severity Currently: Moderate Pain Intensity: 7 Pain Scale Used: 0-10 Numeric Location: Other - lower abd initially, this morning upper abd Radiates: No Character: Cramping - "gassy" Aggravating Factor(s): Nothing Alleviating Factor(s): Nothing Associated Signs and Symptoms: Positive: Dizzy, Vaginal Bleeding, Nausea. Negative: Constipation, Vaginal Discharge, Vomiting, Diarrhea Allergies/Adverse Reactions: Allergies Allergy/AdvReac Type Severity Reaction Status Date / Time lactose Allergy Intermediate GI Upset Verified 12/03/18 09:07 latex AdvReac Intermediate Rash And Verified 12/03/18 09:07 Itching PMH/Surg Hx/FS Hx/Imm Hx Previously Healthy: Yes Endocrine/Hematology History: Reports: Hx Anemia - hx of Denies: Hx Blood Disorders - blood clots, Hx Diabetes, Hx Thyroid Disease Cardiovascular History: Denies: Hx Hypertension, Hx Pacemaker/ICD, Other Cardiovascular Problems/ Disorders Respiratory History: Denies: Other Respiratory Problems/Disorders GI History: Reports: Hx Irritable Bowel History: Denies: Hx Renal Disease Musculoskeletal History: Reports: Hx Arthritis - bilat hips Sensory History: Denies: Hx Contacts or Glasses, Hx Hearing Aid Opthamlomology History: Denies: Hx Contacts or Glasses Neurological History: Reports: Hx Headaches, Hx Migraine Psychiatric History: Reports: Hx Anxiety - situational, Hx Depression Denies: Hx Panic Disorder, Other Psychiatric Issues/Disorders - Cancer History Hx Chemotherapy: No - Surgical History Surgical History: Yes Surgery Procedure, Year, and Place: D&C on 12/03/18 Hx Anesthesia Reactions: No Infectious Disease History: No Infectious Disease History: Reports: Traveled Outside the [place] in Last 30 Days - Family History Known Family History: Negative: Diabetes - Social History Alcohol Use: Occasionally Hx Substance Use: No Substance Use Type: Reports: None Hx Tobacco Use: No Smoking Status (MU): Never Smoked Tobacco Review of Systems Negative: Chest Pain Positive: Shortness Of Breath Positive: Abdominal Pain, Nausea. Negative: Vomiting, Diarrhea, Other - constipation Negative: Myalgia, Edema Neurological: Other - dizziness, lightheadedness All Other Systems Reviewed And Are Negative: Yes Physical Exam - Summary Physical Exam Summary: Constitutional: Well-developed, Well-nourished, Alert. (-) Distressed Skin: Warm, Dry HENT: Normocephalic; Atraumatic Eyes: Conjunctiva normal Neck: Musculoskeletal ROM normal neck. (-) JVD, (-) Stridor, (-) Tracheal deviation Cardio: Rhythm regular, rate normal, Heart sounds normal; Intact distal pulses; The pedal pulses are 2+ and symmetric. Radial pulses are 2+ and symmetric. (-) Murmur Pulmonary/Chest wall: Effort normal. (-) Respiratory distress, (-) Wheezes, (-) Rales Abd: Soft, mild LUQ tenderness, (-) Distension, (-) Guarding, (-) Rebound Musculoskeletal: (-) Edema Lymph: (-) Cervical adenopathy Neuro: Alert, Oriented x3 Psych: Mood and affect Normal Triage Information Reviewed: Yes Vital Signs On Initial Exam: Initial Vitals Temp Pulse Resp BP Pulse Ox 98.1 F 78 18 124/97 96 12/07/18 08:29 12/07/18 08:29 12/07/18 08:29 12/07/18 08:29 12/07/18 08:29 Vital Signs Reviewed: Yes Diagnostics - Vital Signs Vital Signs Temp Pulse Resp BP Pulse Ox 12/07/18 08:46 74 131/92 99 12/07/18 08:29 98.1 F 78 18 124/97 96 - Laboratory Result Diagrams: 12/07/18 09:03 12/07/18 09:03 Lab Statement: Any lab studies that have been ordered have been reviewed, and results considered in the medical decision making process. - Radiology CXR Radiology Interpretation Completed By: Radiologist Summary of Radiographic Findings: No evidence for acute cardiopulmonary disease. ED physician has reviewed this report. - EKG 09 Cardiac Rate: NL - 79bpm EKG Rhythm: Sinus Rhythm ST Segment: Normal Ectopy: None Summary of EKG Findings: EKG at 0907 shows NSR at 79bpm with a T-wave inversion in III and no STEMI. Abdominal Pain Fem Course/Dx - Course Course Of Treatment: Patient is here with mild generalized developing worsening left upper quadrant and in of some shortness of breath that has resolved. Patient's overall well-appearing with a benign abdominal exam. Patient had blood performed which is unremarkable including a negative d-dimer. 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 - Diagnoses Provider Diagnoses: Upper abdominal pain, Shortness of breath Discharge ED - Sign-Out/Discharge Documenting (check all that apply): Patient Departure Patient Received Moderate/Deep Sedation with Procedure: No - Discharge Plan Condition: Stable Disposition: HOME Patient Education Materials: Acute Abdominal Pain (ED), Abdominal Pain (ED) Referrals: Vanessa Mack MD [Primary Care Provider] - Raimundo Morrow MD [Medical Doctor] - Additional Instructions: Please follow up with Dr. Morrow within the next 1-3 days. Return to the emergency department with any new or worsening symptoms. - Billing Disposition and Condition Condition: STABLE Disposition: Home - Attestation Statements Document Initiated by Scribe: Yes Documenting Scribe: Patricia Evans Provider For Whom Agnes is Documenting (Include Credential): Ramiro Plata MD. Scribe Attestation: Patricia Angelo, scribed for Ramiro Plata MD. on 12/07/18 at 1821. Scribe Documentation Reviewed: Yes Provider Attestation: The documentation as recorded by the Patricia phillips accurately reflects the service I personally performed and the decisions made by , Ramiro Plata MD. Status of Scribe Document: Viewed
[2018-12-07 09:26] LABS: ABS Eosinophils 0.1 10^3/ul (0-0.6); ABS Lymphocytes 2.2 10^3/ul (1.0-4.8); ABS Monocytes 0.5 10^3/ul (0-0.8); ABS Neutrophils 3.6 10^3/ul (1.5-7.7); Eosinophil % 1.6 %; Hematocrit 37 % (35-47); Hemoglobin 12.6 g/dL (12.0-16.0); Mean Corpuscular HGB Conc 34 g/dL (31-36); Mean Corpuscular Hemoglobin 27 pg (27-31); Mean Corpuscular Volume 81 fL (80-97); Mean Platelet Volume 7.6 fL (7.4-10.4); Platelet Count 336 10^3/uL (150-450); Red Blood Count 4.63 10^6 /uL (3.70-4.87); Red Cell Distribution Width 14 % (10-15); White Blood Count 6.4 10^3/uL (3.5-10.8)
--- OUTSIDE RECORDS SUMMARY | 2018-12-07 09:34 | XMS REPORT | Continuity of Care Document ---
:1985 External Reference #:[id number] Author Name Raimundo Morrow MD (transmitted by agent of provider Caroline Baumann) Address [address] [place] [id number] Care Team Providers Name Role Phone Daina Lopez MD - Orthopaedic Care Team Information Pharmacy Billing Adjudicator Surgery Vanessa Mack MD - Internal Medicine Care Team Information Pharmacy Billing Adjudicator [phone] Problems Active Problems Provider Date Sprain of ankle Krishna Barrera MD Onset: 06/08/2017 Peroneal tendinitis Krishna Barrera MD Onset: 06/08/2017 Mild recurrent major depression Earle Henriquez M.D. Onset: 12/08/2017 Anxiety state Earle Henriquez M.D. Onset: 12/08/2017 Anemia Earle Henriquez M.D. Onset: 12/08/2017 Irritable bowel syndrome with diarrhea Earle Henriquez M.D. Onset: 2017 Migraine without aura, not refractory Earle Henriquez M.D. Onset: 2017 Insomnia Earle Henriquez M.D. Onset: 12/08/2017 Restless legs Earle Henriquez M.D. Onset: 12/08/2017 Arthralgia of the pelvic region and thigh Earle Henriquez M.D. Onset: 12/08 Family history of breast cancer Luana Hernandez M.D. Onset: 10/05/2018 Social History Type Date Description Comments Sex Unknown Tobacco Use Start: Unknown Never Smoked Cigarettes Smoking Status Reviewed: 11/26/18 Never Smoked Cigarettes ETOH Use Denies alcohol use Tobacco Use Start: Unknown Patient has never smoked Recreational Drug Use Denies Drug Use Exercise Type/Frequency Exercises regularly Allergies, Adverse Reactions, Alerts Active Allergies Reaction Severity Comments Date Latex 06/08/2017 Tape 06/08/2017 Dairy Ease 12/08/2017 Gluten 12/08/2017 Medications Active Medications SIG Qnty Indications Ordering Provider Date Ibuprofen one tablet by 12tabs N92.1 Raimundo Morrow MD 11/26/2018 600mg Tablets mouth q6 as needed pain Percocet 1 tablet every 6 8tabs N92.1 Raimundo Morrow MD 11/26/2018 5-325mg hours as needed Tablets for strong pain Gianvi Take 1 Tablet By 28tabs N92.0 Padma Bhandari, 08/30/2018 3-0.02mg Tablets Mouth Every Day [employer]de Naproxen take 1 tablet by 30tabs G44.201 Vanessa Mack MD 07/20/2018 500mg Tablets mouth twice a day with food Prozac 2 by mouth every 60caps Tena Jiménez, 06/28/2018 20mg Capsules day N.P. Gabapentin 2 capsules by 60caps Vanessa Mack MD 06/12/2015 100mg mouth one time Capsules daily in the evening - maximum daily dose of 2 per day Ibuprofen 1 tablet q8 hours Unknown 800mg Tablets as needed for pain Alprazolam 1 tablet by mouth Unknown 0.25mg as needed in the Tablets evening for anxiety/insomnia Ferrous Gluconate 1 by mouth twice R53.83 Unknown a day 324(38Fe) mg Tablets History Medications Zonia 1 po qd 28tabs N92.0 Padma Bhandari, 08/09/2018 - 3-0.02mg [employer] 08/30/2018 Tablets Drospirenone/Ethiny 1 po qd 28tabs N92.0 Padma Bhandari, 08/06/2018 - l [employer] 08/09/2018 Estradiol/Levomefol ate Calcium 3-0.02-0.451mg Tablets Drospirenone/Ethiny Take one daily 84tabs Vanessa Mack MD 08/02/2018 - l 10/04/2018 Estradiol/Levomefol ate Calcium 3-0.02-0.451mg Tablets Immunizations Description No Information Available Vital Signs Date Vital Result Comment 11/26/2018 10:35am Height 61 inches 5'1" Weight 258.00 lb Heart Rate 75 /min BP Systolic 141 mmHg BP Diastolic 90 mmHg O2 % BldC Oximetry 98 % BMI (Body Mass Index) 48.7 kg/m2 10/07/2018 8:36am Height 61 inches 5'1" Weight 255.00 lb Heart Rate 82 /min BP Systolic 143 mmHg BP Diastolic 100 mmHg O2 % BldC Oximetry 99 % BMI (Body Mass Index) 48.2 kg/m2 Last Menstrual Period [id number] Results Test Date Facility Test Result H/L Range Note Laboratory test 10/05/2018 [facility] TSH 0.76 mcIU/mL Normal 0.34-5.[address] ([place] [address] Stim Horm) [phone] Ferritin 7.4 ng/mL Low 11-307 Hemoglobin/Hematocrit 10/05/2018 [facility] Hemoglobin 13.4 Normal 12.0-16.[address] g/[place] [address] [phone] Hematocrit 40 % Normal 35-47 CBC Auto 07/06/2018 [facility] White Blood 6.3 10^3/uL Normal 3.5-10.[address] [place] [address] [phone] Red Blood Count 4.59 10^6/uL Normal 3.70-4.87 Hemoglobin 12.3 g/dL Normal 12.0-16.0 Hematocrit 37 % Normal 33-41 Mean Corpuscular Volume 80 fL Normal 80-97 Mean Corpuscular Hemoglobin 27 pg Normal 27-31 Mean Corpuscular HGB Conc 34 g/dL Normal 31-36 Red Cell Distribution Width 14 % Normal 10.5-15 Platelet Count 347 10^3/uL Normal 150-450 Mean Platelet Volume 8.3 fL Normal 7.4-10.4 Abs Neutrophils 4.1 10^3/uL Normal 1.5-7.7 Abs Lymphocytes 1.7 10^3/uL Normal 1.0-4.8 Abs Monocytes 0.3 10^3/uL Normal 0-0.8 Abs Eosinophils 0.1 10^3/uL Normal 0-0.6 Abs Basophils 0 10^3/uL Normal 0-0.2 Abs Nucleated RBC 0 10^3/uL Granulocyte % 65.6 % Lymphocyte % 27.0 % Monocyte % 5.5 % Eosinophil % 1.3 % Basophil % 0.6 % Nucleated Red Blood Cells % 0 Comp Metabolic 07/06/2018 [facility] Sodium 138 mmol/L Normal 135-[address] [place] [address] [phone] Potassium 4.1 mmol/L Normal 3.5-5.0 Chloride 108 mmol/L Normal 101-111 Co2 Carbon Dioxide 23 mmol/L Normal 22-32 Anion Gap 7 mmol/L Normal 2-11 Glucose 99 mg/dL Normal 70-100 Blood Urea Nitrogen 9 mg/dL Normal 6-24 Creatinine 0.69 mg/dL Normal 0.51-0.95 BUN/Creatinine Ratio 13.0 Normal 8-20 Calcium 8.7 mg/dL Normal 8.6-10.3 Total Protein 6.3 g/dL Low 6.4-8.9 Albumin 3.8 g/dL Normal 3.2-5.2 Globulin 2.5 g/dL Normal 2-4 Albumin/Globulin Ratio 1.5 Normal 1-3 Total Bilirubin 0.40 mg/dL Normal 0.2-1.0 Alkaline Phosphatase 49 U/L Normal 34-104 Alt 11 U/L Normal 7-52 Ast 15 U/L Normal 13-39 Egfr Non- 97.4 >60 Egfr 117.8 >60 1 Laboratory 07/06/2018 [facility] TSH (Thyroid 1.61 Normal 0.34 -5.[address] Stim Horm) mcIU/[place] [address] [phone] Vitamin D Total 25(Oh) 30.3 ng/mL Normal 20-50 2 Vitamin B12 224 pg/mL Normal 180-914 3 Laboratory test 06/21/2018 [facility] Lactic Acid 1.4 mmol/L Normal 0.5-2.[address] [place] [address] [phone] CBC Auto Diff 06/21/2018 [facility] White Blood 6.4 10^3/uL Normal 3.5-10.[address] [place] [address] [phone] Red Blood Count 4.45 10^6/uL Normal 3.70-4.87 Hemoglobin 12.0 g/dL Normal 12.0-16.0 Hematocrit 36 % Normal 33-41 Mean Corpuscular Volume 80 fL Normal 80-97 Mean Corpuscular Hemoglobin 27 pg Normal 27-31 Mean Corpuscular HGB Conc 34 g/dL Normal 31-36 Red Cell Distribution Width 14 % Normal 10.5-15 Platelet Count 316 10^3/uL Normal 150-450 Mean Platelet Volume 7.5 fL Normal 7.4-10.4 Abs Neutrophils 3.8 10^3/uL Normal 1.5-7.7 Abs Lymphocytes 2.0 10^3/uL Normal 1.0-4.8 Abs Monocytes 0.5 10^3/uL Normal 0-0.8 Abs Eosinophils 0.1 10^3/uL Normal 0-0.6 Abs Basophils 0 10^3/uL Normal 0-0.2 Abs Nucleated RBC 0 10^3/uL Granulocyte % 59.8 % Lymphocyte % 30.5 % Monocyte % 7.4 % Eosinophil % 1.8 % Basophil % 0.5 % Nucleated Red Blood Cells % 0 Laboratory test 06/21/2018 [facility] Erythrocyte Sed 20 mm/Hr Normal 0-20 [address] [place] [address] [phone] 1 Because ethnic data is not always [...] 5 Kidney failure <15 (or dialysis) 2 Total 25-Hydroxyvitamin D2 and D3 (25-OH-VitD) <10 ng/mL (severe deficiency) 10-19 ng/mL (mild to moderate deficiency) 20-50 ng/mL (optimum levels) 51-80 ng/mL (increased risk of hypercalciuria) >80 ng/mL (toxicity possible) 3 Normal Range 180 to 914 Indeterminate Range 145 to 180 Deficient Range <145 4 [facility] Severe Sepsis and Septic Shock Management Bundle Measure requires all lactic acids initially measuring >2.0 mmol/L be repeated. 5 Test Performed by: [facility] [address] [place], [place] [address] Jose Fu M.D. Director of Laboratory Procedures Date Code Description Status 08/11/2018 [id number] Mammogram Completed Medical Devices Description No Information Available Encounters Type Date Location Provider Dx Diagnosis Office Visit 10/07/2018 [facility] Padma Bhandari, N92.1 Excessive and 8:30a [facility] [employer]Cdmartina frequent menstruation with irregular cycle D50.0 Iron deficiency anemia secondary to blood loss (chronic) Office Visit 10/05/2018 12:10p [facility] Internal Luana N92.1 Excessive and Syed Hernandez M.D. frequent Ccmob menstruation with irregular cycle R53.83 Other fatigue Office Visit 08/31/2018 11:40a [facility] Internal Fredo Samaniego M25.551 Pain in right hip Syed - Deepak Mondragon Ccmob Office Visit 08/06/2018 2:00p [facility] Padma Bhandari, N92.0 Excessive and [facility] [employer]Cde frequent menstruation with regular cycle Office Visit 07/20/2018 12:40p [facility] Internal Vanessa Mack M25.551 Pain in right hip Syed - Ccmob Z12.31 Encntr screen mammogram for malignant neoplasm of breast J30.2 Other seasonal allergic rhinitis G44.201 Tension-type headache, unspecified, intractable Z80.3 Family history of malignant neoplasm of breast Office Visit 07/06/2018 9:00a [facility] Internal Jas Medina NP R53.83 Other fatigue Medicine - Ccmob R27.8 Other lack of coordination R41.3 Other amnesia G43.009 Migraine w/o aura, not intractable, w/o status migrainosus Assessments Date Code Description Provider 11/26/2018 N92.1 Excessive and frequent menstruation with Raimundo Morrow MD irregular cycle 10/07/2018 N92.1 Excessive and frequent menstruation with Padma Thony, [employer] -Cde irregular cycle 10/07/2018 D50.0 Iron deficiency anemia secondary to blood Padma BhandariJONHP-Cde loss (chronic) 10/05/2018 N92.1 Excessive and frequent menstruation with Luana Hernandez M.D. irregular cycle 10/05/2018 R53.83 Other fatigue Luana Hernandez M.D. 08/31/2018 M25.551 Pain in right hip Fredo Mondragon M.D. 08/06/2018 N92.0 Excessive and frequent menstruation with Padma BhandariJONHP -Cdmartina regular cycle 07/20/2018 M25.551 Pain in right hip Vanessa Mack MD 07/20/2018 Z12.31 Encounter for screening mammogram for Vanessa Mack MD malignant neoplasm of 07/20/2018 J30.2 Other seasonal allergic rhinitis Vanessa Mack MD 07/20/2018 G44.201 Tension-type headache, unspecified, Vanessa Mack MD intractable 07/20/2018 Z80.3 Family history of malignant neoplasm of Vanessa Mack MD breast 07/06/2018 R53.83 Other fatigue Jas Medina NP 07/06/2018 R27.8 Other lack of coordination Jas Medina NP 07/06/2018 R41.3 Other amnesia Jas Medina NP 07/06/2018 G43.009 Migraine without aura, not intractable, Jas Medina NP without status migra Plan of Treatment Future Appointment(s):12/10/2018 2:30 pm - Raimundo Morrow MD at [facility]12/03/2018 11:30 am - Raimundo Morrow MD at [facility]11/26/2018 - Raimundo Morrow MDN92.1 Excessive and frequent menstruation with irregular cycleNew Medication:Ibuprofen 600 mg - one tablet by mouth q6 as needed painPercocet 5-325 mg - 1 tablet every 6 hours as needed for strong pain Functional Status Description No Information Available Mental Status Description No Information Available Referrals Refer to Reason for Referral Status Appt Date Raimundo Morrow MD Sent 10/08/2018 [address] [facility] [address] [place] [address] [phone] Daina Lopez MD chronic R hip pains Sent 09/14/2018 [address] [facility] [place] [address] [place] [address] [phone] Raimundo Morrow MD Scheduled [address] [facility], [address] [place], [place] [id number] [phone]
[2018-12-07 09:40] LABS: ALT 11 U/L (7-52); AST 15 U/L (13-39); Albumin 3.7 g/dL (3.2-5.2); Albumin/Globulin Ratio 1.5 (1-3); Alkaline Phosphatase 52 U/L (34-104); Anion Gap 5 mmol/L (2-11); BUN/Creatinine Ratio 13.8 (8-20); Blood Urea Nitrogen 9 mg/dL (6-24); CO2 Carbon Dioxide 27 mmol/L (22-32); Calcium 8.7 mg/dL (8.6-10.3); Chloride 105 mmol/L (101-111); EGFR African American 126.3 (>60); EGFR Non-African American 104.3 (>60); Globulin 2.4 g/dL (2-4); Glucose 95 mg/dL (70-100); Potassium 3.9 mmol/L (3.5-5.0); Sodium 137 mmol/L (135-145); Total Protein 6.1 g/dL (6.4-8.9)
[2018-12-07 09:46] LABS: HCG Pregnancy < 0.60 mIU/mL
== END 2018-12-07 10:32 | disposition home or self-care (01) ==
LOC: ED 08:28
DX: R10.11 Right upper quadrant pain (principal); R06.02 Shortness of breath; D64.9 Anemia, unspecified; F41.9 Anxiety disorder, unspecified; F32.9 Major depressive disorder, single episode, unspecified; Z79.899 Other long term (current) drug therapy; Z91.040 Latex allergy status
CPT/HCPCS: 36415; 71045; 80053; 83690; 84484; 84702; 85025; 85379; 93005; 99283

== ENCOUNTER 2019-04-12 11:26 | Emergency (ER) | payer OTHER ==
[2019-04-12 12:18] VITALS: BP 130/92
--- NOTE | 2019-04-12 12:54 | UC ---
Throat Pain/Nasal Christophe HPI - HPI Summary HPI Summary: 34-year-old female presents with one-week history of nasal congestion, sinus pressure, postnasal drip, right ear pain and fullness, and sore throat. States she has been taking [id number] Sudafed without any relief in symptoms. Reports subjective fever and chills. Denies ear drainage, dysphagia, cough, chest pain, or shortness of breath. - History of Current Complaint Chief Complaint: UCGeneralIllness Stated Complaint: SINUS CONGESTION,EAR PAIN Time Seen by Provider: 04/12/19 12:33 Hx Obtained From: Patient Hx Last Menstrual Period: 03/28/19 Pain Intensity: 3 - Allergies/Home Medications Allergies/Adverse Reactions: Allergies Allergy/AdvReac Type Severity Reaction Status Date / Time lactose Allergy Intermediate GI Upset Verified 04/12/19 12:19 latex AdvReac Intermediate Rash And Verified 04/12/19 12:19 Itching PMH/Surg Hx/FS Hx/Imm Hx Psychological History: Depression - Surgical History Surgical History: Yes Surgery Procedure, Year, and Place: D&C on 12/03/18 - Family History Known Family History: Positive: Non-Contributory - Social History Occupation: Employed Full-time Lives: With Family Alcohol Use: Occasionally Substance Use Type: None Smoking Status (MU): Never Smoked Tobacco Review of Systems All Other Systems Reviewed And Are Negative: Yes Constitutional: Positive: Fever - Subjective, Chills Skin: Negative: Rash Eyes: Negative: Drainage, Eye Redness ENT: Positive: Sore Throat, Ear Ache, Nasal Discharge, Sinus Congestion, Sinus Pain/Tenderness Respiratory: Negative: Shortness Of Breath, Cough Cardiovascular: Positive: Negative Gastrointestinal: Positive: Negative Genitourinary: Positive: Negative Musculoskeletal: Positive: Negative Neurological: Positive: Negative Is Patient Immunocompromised?: No Physical Exam - Summary Physical Exam Summary: GENERAL APPEARANCE: Alert and cooperative obese adult female who appears to be in no acute distress. EYES: Conjunctiva clear. No drainage. EARS: External auditory canals clear, left TM opaque with good cone of light, Right TM flat with mild erythema to the superior margin, hearing grossly intact. NOSE: Moderate nasal congestion. No nasal discharge. Maxillary sinus tenderness. THROAT: Mild pharyngeal erythema with postnasal drip. No tonsilar inflammation , swelling, exudate, or lesions. Uvula midline. NECK: Neck supple, non-tender without lymphadenopathy. CARDIAC: Normal S1 and S2. No S3, S4 or murmurs. Rhythm is regular. There is no peripheral edema, cyanosis or pallor. Extremities are warm and well perfused. Capillary refill is less than 2 seconds. Peripheral pulses intact. LUNGS: Clear to auscultation without rales, rhonchi, wheezing or diminished breath sounds. ABDOMEN: Positive bowel sounds. Soft, nondistended, nontender. No guarding or rebound. No masses or hepatosplenomegally. MUSKULOSKELETAL: ROM intact to all extremities. No joint erythema or tenderness. Normal muscular development. Normal gait. SKIN: Skin normal color, texture and turgor with no lesions or eruptions. Triage Information Reviewed: Yes Vital Signs: Initial Vital Signs Temp 97.7 F 04/12/19 12:16 Pulse 78 04/12/19 12:16 Resp 17 04/12/19 12:16 BP 130/92 04/12/19 12:16 Pulse Ox 100 04/12/19 12:16 Vital Signs Reviewed: Yes Throat Pain/Nasal Course/Dx - Course Course Of Treatment: 34-year-old female presents with one-week history of nasal congestion, sinus pressure, postnasal drip, right ear pain and fullness, and sore throat. States she has been taking [id number] Sudafed without any relief in symptoms. Reports subjective fever and chills. Denies ear drainage, dysphagia, cough, chest pain, or shortness of breath. Afebrile. Vital signs stable. On exam patient had moderate nasal congestion, maxillary sinus tenderness, the right TM was flat with some mild erythema along the superior margin, mild pharyngeal erythema with postnasal drip, no tonsillar swelling or exudate, no cervical lymphadenopathy, clear bilateral breath sounds, and otherwise unremarkable exam. Discussed with patient that her symptoms were consistent with an acute sinusitis likely of viral origin and recommended that she continue with symptomatic treatment at this time. With the right TM being mildly erythematous I have provided her with a prescription for Augmentin 875 mg 1 tablet twice daily for 10 days to be started if there is no improvement in her symptoms after 3 days of continued symptomatic care. She is to follow-up with her primary care provider in 3-5 days if her symptoms do not improve. Anticipatory guidance warning symptoms were reviewed with the patient. Verbalizes understanding and agrees with plan of care. - Differential Dx/Diagnosis Differential Diagnosis/HQI/PQRI: Influenza, Pharyngitis, Sinusitis, URI Provider Diagnosis: Sinusitis Discharge ED - Sign-Out/Discharge Documenting (check all that apply): Patient Departure All imaging exams completed and their final reports reviewed: No Studies - Discharge Plan Condition: Stable Disposition: HOME Prescriptions: Amoxicillin/Clavulanate TAB* [Augmentin TAB 875*] 875 mg PO BID 10 Days #20 tab Fluticasone NASAL SPRAY 50MCG* [Flonase NASAL SPRAY 50MCG*] 2 spray BOTH NARES DAILY #1 btl Patient Education Materials: Sinusitis (ED) Referrals: Vanessa Mack MD [Primary Care Provider] - 5 Days (If no improvement in symptoms. ) Additional Instructions: Your history and exam are consistent with a sinus infection. Sinus infections without fever are most often caused by a viral infection. Viral infections do not respond to antibiotics and are limited to the treatment of symptoms. Viral infections typically run their course in 7-10 days. Considering the duration of your symptoms, I will send in a prescription for an antibiotic. I would recommend that you continue with symptomatic care for at least another 3 days before starting. If there is no improvement with symptomatic treatment start Augmentin 875 mg 1 tab twice a day for 10 days. Be sure to take with food to avoid upset stomach. Complete the entire course even if you are feeling better. Use a saline rinse kit such as Neti Pot or NeilMed at least twice a day to help thin secretions and promote drainage of the sinuses. Use fluticasone (Flonase) nasal spray 2 sprays each nostril once daily. Continue to use an over the counter decongestant such as Sudafed according to directions to help with congestion. Take over the counter acetaminophen (Tylenol) or ibuprofen (Advil, Motrin) according to directions as needed for pain or fever. Follow up with your primary care provider in 5-7 days if symptoms persist. Seek immediate medical attention in the emergency room if you have fever greater than 100.5 F despite taking acetaminophen or ibuprofen, have chest pain , difficulty breathing, are unable to swallow, or have any worsening of symptoms. - Billing Disposition and Condition Condition: STABLE Disposition: Home
== END 2019-04-12 13:54 | disposition home or self-care (01) ==
LOC: UCEAST 11:26
DX: J32.9 Chronic sinusitis, unspecified (principal); Z91.011 Allergy to milk products; Z91.040 Latex allergy status
CPT/HCPCS: 99212; G0463

== ENCOUNTER 2019-07-20 11:46 | Emergency (ER) | payer OTHER ==
[2019-07-20 13:09] LABS: ABS Eosinophils 0.1 10^3/ul (0-0.6); ABS Lymphocytes 1.6 10^3/ul (1.0-4.8); ABS Monocytes 0.3 10^3/ul (0-0.8); Eosinophil % 2.4 %; Hematocrit 37 % (35-47); Hemoglobin 12.5 g/dL (12.0-16.0); Lymphocyte % 29.7 %; Mean Corpuscular HGB Conc 33 g/dL (31-36); Mean Corpuscular Hemoglobin 26 pg (27-31); Mean Corpuscular Volume 77 fL (80-97); Mean Platelet Volume 7.5 fL (7.4-10.4); Nucleated Red Blood Cells % 0.1; Platelet Count 366 10^3/uL (150-450); Red Blood Count 4.83 10^6 /uL (3.70-4.87); Red Cell Distribution Width 15 % (10-15); White Blood Count 5.3 10^3/uL (3.5-10.8)
[2019-07-20 13:29] LABS: HCG Pregnancy 0.84 mIU/mL
[2019-07-20 14:03] LABS: Alcohol, S < 10 mg/dL (<10)
[2019-07-20 17:48] LABS: Anion Gap 9 mmol/L (2-11); CO2 Carbon Dioxide 25 mmol/L (22-32); Chloride 104 mmol/L (101-111); Magnesium 1.9 mg/dL (1.9-2.7); Potassium 4.3 mmol/L (3.5-5.0); Sodium 138 mmol/L (135-145)
[2019-07-20 17:54] LABS: ALT 14 U/L (7-52); AST 20 U/L (13-39); Albumin/Globulin Ratio 1.4 (1-3); Alkaline Phosphatase 60 U/L (34-104); BUN/Creatinine Ratio 17.5 (8-20); Blood Urea Nitrogen 11 mg/dL (6-24); EGFR African American 130.1 (>60); EGFR Non-African American 107.5 (>60); Globulin 2.8 g/dL (2-4); Glucose 93 mg/dL (70-100); Total Protein 6.8 g/dL (6.4-8.9)
[2019-07-20 18:00] VITALS: BP 123/79
[2019-07-20 18:49] LABS: TSH (Thyroid Stimulating Horm) 1.17 mcIU/mL (0.34-5.60)
== END 2019-07-20 18:22 | disposition home or self-care (01) ==
LOC: ED 11:46

== ENCOUNTER 2020-07-24 05:56 | Inpatient (IN) ==
[2020-07-24] MEDS ORDERED: Lactated Ringers 1000 ml BAG 1,000 ML IV SCH (06:00)
[2020-07-24] MEDS ORDERED: Buffered Lidocaine 1% SYRIN 1 ml INTRADERM ONE (06:00)
[2020-07-24] MEDS ORDERED: ceFAZolin 2 GM PREMIX 2 GM/50 ML BAG ONE (06:13)
[2020-07-24] MEDS ORDERED: Heparin 5000 UNITS/ML 1 mL VIAL ONE (06:13)
[2020-07-24] MEDS ORDERED: ceFAZolin 1 GM ADVAN 1 GM ADDV.VIAL IVPB ONE (06:13)
[2020-07-24] MEDS ORDERED: Propofol 10 MG/ML 20 ML BTL ONE (06:55)
[2020-07-24] MEDS ORDERED: Midazolam 2 mg/2 ml VIAL 1 mg/ml 2 ml VIAL (2 mg) ONE (06:57)
[2020-07-24] MEDS ORDERED: Lidocaine 2% PF 5 ML VIAL ONE (06:57)
[2020-07-24] MEDS ORDERED: fentaNYL 250 mcg/5 ml 50 MCG/ML 5 ml VIAL (250 MCG) ONE ×2 (06:57→08:48)
[2020-07-24] MEDS ORDERED: Rocuronium 50 mg VIAL 10 mg/ml 5 ml VIAL (50 mg) ONE (06:58)
[2020-07-24] MEDS ORDERED: Ondansetron 4 mg VIAL 2 MG/ML 2 ml VIAL ONE (07:01)
[2020-07-24] MEDS ORDERED: Dexamethasone IV 4 MG/ML VIAL 1 ml VIAL ONE (07:01)
[2020-07-24] MEDS ORDERED: Ondansetron 4 mg VIAL 2 MG/ML 2 ml VIAL IV PRN ×2 (07:52→09:51)
[2020-07-24] MEDS ORDERED: Naloxone 0.4 mg VIAL 0.4 mg/ml 1 ml VIAL IV PRN (07:52)
[2020-07-24] MEDS ORDERED: DiMENhydriNATE IV 50 mg/ml 1 ml VIAL IV PUSH PRN (07:52)
[2020-07-24] MEDS ORDERED: oxyCODONE/Acetamin 5/325 mg TAB PO PRN (07:52)
[2020-07-24] MEDS ORDERED: fentaNYL 100 mcg/2 ml 50 MCG/ML VIAL IV PRN (07:52)
[2020-07-24] MEDS ORDERED: HYDROmorphone 1 MG/1 ML SYRINGE ONE (08:22)
[2020-07-24] MEDS ORDERED: fentaNYL 100 mcg/2 ml 50 MCG/ML VIAL ONE (08:31)
[2020-07-24] MEDS ORDERED: Labetalol IV 5 MG/ML 20 ml VIAL ONE (09:08)
[2020-07-24] MEDS ORDERED: Sugammadex 500 MG/5 ML 5 ml VIAL IV PUSH ONE (09:11)
[2020-07-24] MEDS ORDERED: HYDROmorphone 1 MG/1 ML SYRINGE IV SLOW PU PRN (09:51)
[2020-07-24] MEDS ORDERED: diPHENhydraMINE IV 50 MG/ML 1 ml VIAL (BENADRYL) SLOW PUSH PRN (09:51)
[2020-07-24] MEDS ORDERED: HYDROmorphone 0.5 MG/0.5 ML SYRINGE IV SLOW PU PRN (09:51)
[2020-07-24] MEDS: Lactated Ringers 1000 ml BAG 1,000 ML IV SCH ×2 (10:44→17:48)
[2020-07-24] MEDS: Famotidine IV 10 MG/ML 2 ml VIAL (20 mg) IV SLOW PU SCH (20:43)
[2020-07-25] MEDS: Lactated Ringers 1000 ml BAG 1,000 ML IV SCH ×2 (00:28→06:29)
[2020-07-25] MEDS: Famotidine IV 10 MG/ML 2 ml VIAL (20 mg) IV SLOW PU SCH (09:52)
[2020-07-25] MEDS ORDERED: D5W 1/2 NS KCl 20 meq 1000 ml 1,000 ML IV SCH (10:00)
[2020-07-25 11:07] VITALS: BP 131/74
== END 2020-07-25 12:40 | disposition home or self-care (01) | DRG 403 ==
LOC: AA 05:56 → SSU 10:27
PROVIDERS: ADMIT Surgery; ATTEND Surgery